=== PATIENT | female | born 1995 | race Caucasian/White ===

== ENCOUNTER 2017-11-14 22:47 | Emergency (ER) | payer BC ==
[2017-11-14] MEDS ORDERED: Ketorolac 30 MG/ML SDV IM ONE ×2 (23:43→23:44)
[2017-11-14] MEDS ORDERED: Ketorolac 30 MG/ML SDV ONE (23:43)
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
== END 2017-11-14 23:55 | disposition home or self-care (01) ==
LOC: KA.ED 22:47
DX: S60.112A Contusion of left thumb with damage to nail, initial encounter (principal); W23.0XXA Caught, crushed, jammed, or pinched between moving objects, initial encounter
CPT/HCPCS: 73140-FA; 96372; 99283; J1885